=== PATIENT | male | born 1940 | race Caucasian/White ===

== ENCOUNTER 2017-02-02 10:01 | Outpatient (RCR) | payer MEDICARE, SELFPAY | END 2017-02-02 10:28 | disposition home or self-care (01) | LOC: OMD 10:01 | PROVIDERS: Family Provider Family Medicine; PCP Family Medicine; Visit Provider Student in an Organized Health Care Education/Training Program | DX: C91.10 Chronic lymphocytic leukemia of B-cell type not having achieved remission (principal) ==